=== PATIENT | female | born 1985 | race Caucasian/White ===

== ENCOUNTER 2018-06-10 05:49 | Inpatient (IN) | payer OTHER ==
[~2018-06-10] VITALS: Ht 165 cm; Wt 75.3 kg
[2018-06-16] MEDS ORDERED: RINGERS SOLUTION,LACTATED 1,000 ML IV ONE ×2 (05:48→06:03)
[2018-06-16] MEDS ORDERED: METOCLOPRAMIDE HCL 5 MG/ML 2 ML VIAL IVP ONE ×2 (06:00→06:15)
[2018-06-16] MEDS ORDERED: CITRIC ACID/SODIUM CITRATE 30 ML SOLUTION UDCUP PO ONE ×2 (06:00→06:15)
[2018-06-16 06:14] LABS: BASOPHILS % (AUTO) 0.4 % (0.0-2.0); EOSINOPHILS % (AUTO) 1.8 % (1.0-6.0); HEMATOCRIT 32.9 % (36-46); HEMOGLOBIN 11.2 g/dL (12.0-16.0); LYMPHOCYTES # (AUTO) 2.1 K/uL (1.0-4.8); LYMPHOCYTES % (AUTO) 25.5 % (22.0-44.0); MEAN CORPUSCULAR VOLUME 94 fL (80-100); MONOCYTES # (AUTO) 0.7 K/uL (0.1-1.0); MONOCYTES % (AUTO) 8.9 % (2.0-9.0); NEUTROPHILS # (AUTO) 5.3 K/uL (1.8-7.7); NEUTROPHILS % (AUTO) 63.4 % (40.0-70.0); PLATELET COUNT (AUTO) 182 K/uL (150-450); RED BLOOD CELL COUNT(AUTO) 3.49 MIL/uL (4.00-5.20); RED CELL DISTRIBUTION WIDTH 12.9 % (11.5-14.5)
[2018-06-16] MEDS ORDERED: PREN1TAB80 PO (06:29)
[2018-06-16 06:43] VITALS: BP 107/61
[2018-06-16] MEDS ORDERED: ACETAMINOPHEN 1000 MG/ISO-OSM 100 ML IV ONE (07:30)
[2018-06-16] MEDS ORDERED: BUPIVACAINE HCL/DEX-WATER/PF 0.75% 2 ML AMP ONE (07:31)
[2018-06-16] MEDS ORDERED: MORPHINE SULFATE/PF 0.5 MG/ML 10 ML AMP ONE (07:35)
[2018-06-16] MEDS ORDERED: OxyCODONE HCL/ACETAMINOPHEN 10-325 MG TABLET PO PRN (08:45)
[2018-06-16] MEDS ORDERED: HYDROmorphone 2 MG/ML SYRINGE IVP PRN ×2 (08:45)
[2018-06-16] MEDS ORDERED: MEPERIDINE-PF 25 MG/ML VIAL IVP PRN (08:45)
[2018-06-16] MEDS ORDERED: FentaNYL CITRATE-PF 100 MCG/2 ML VIAL IVP PRN ×2 (08:45)
[2018-06-16] MEDS ORDERED: DiphenhydrAMINE HCL 50 MG/ML VIAL IVP PRN (08:45)
[2018-06-16] MEDS ORDERED: ONDANSETRON HCL 4 MG/2 ML VIAL IVP PRN (08:45)
[2018-06-16] MEDS ORDERED: NALOXONE HCL 0.4 MG/ML VIAL IVP PRN (08:45)
[2018-06-16] MEDS ORDERED: ACETAMINOPHEN/CODEINE 300-30 MG TABLET PO PRN ×2 (09:00)
[2018-06-16] MEDS ORDERED: LANOLIN 7 GM OINTMENT TP PRN (09:00)
[2018-06-16] MEDS: DEXTROSE 5%-0.45% SODIUM CHL 1,000 ML IV SCH ×3 (11:05→22:51)
[2018-06-16] MEDS ORDERED: ONDANSETRON HCL 4 MG/2 ML VIAL IVP ONE (12:00)
[2018-06-16] MEDS ORDERED: CeFAZolin 1 GM/DEXTROSE 50 ML BAG IV ONE (12:00)
[2018-06-16] MEDS ORDERED: OXYTOCIN 10 UNITS/ML VIAL IM ONE (12:00)
[2018-06-16] MEDS ORDERED: 0.9% SODIUM CHLORIDE 10 ML VIAL IVP ONE (12:00)
[2018-06-16] MEDS ORDERED: FentaNYL CITRATE-PF 100 MCG/2 ML VIAL IVP ONE (12:00)
[2018-06-16] MEDS ORDERED: EPHEDrine SULFATE 50 MG/ML VIAL IM ONE (12:00)
[2018-06-16] MEDS: ACETAMINOPHEN 500 MG TABLET PO SCH ×2 (14:22→20:11)
[2018-06-16] MEDS ORDERED: METHYLERGONOVINE MALEATE 0.2 MG/ML VIAL ONE (19:47)
[2018-06-17] MEDS: DEXTROSE 5%-0.45% SODIUM CHL 1,000 ML IV SCH (02:43)
[2018-06-17] MEDS: IBUPROFEN 800 MG TABLET PO SCH ×4 (02:49→23:21)
[2018-06-17] MEDS: ACETAMINOPHEN 500 MG TABLET PO SCH (06:21)
[2018-06-17] MEDS: MAGNESIUM HYDROXIDE SUSPENSION 30 ML UDCUP PO SCH (21:46)
[2018-06-18] MEDS: IBUPROFEN 800 MG TABLET PO SCH (07:26)
[2018-06-18] MEDS: MAGNESIUM HYDROXIDE SUSPENSION 30 ML UDCUP PO SCH (09:00)
[2018-06-18] MEDS ORDERED: IBUP-2070 PO (10:17)
[2018-06-18] MEDS ORDERED: ACET500C4 PO (10:19)
[2018-06-18] MEDS ORDERED: DSS100 PO (10:20)
[2018-06-18] MEDS ORDERED: HYDR-4061 PO (10:25)
== END 2018-06-18 11:50 | disposition home or self-care (01) | DRG 788 ==
LOC: PREOBSVTOIN 05:49 → 4S 06-16 05:43
PROVIDERS: ADMIT Obstetrics & Gynecology; ATTEND Obstetrics & Gynecology
PROC: 10D00Z1 Extraction of Products of Conception, Low, Open Approach (ICD-10-PCS; principal; 2018-06-16)
DX: O32.1XX0 Maternal care for breech presentation, not applicable or unspecified (principal); O76 Abnormality in fetal heart rate and rhythm complicating labor and delivery; Z37.0 Single live birth; Z3A.39 39 weeks gestation of pregnancy
CPT/HCPCS: 86850; 86900; 86901; 87081; J0131; J0690; J2210; J2274; J2405; J2590; J2765; J3010; J3490